=== PATIENT | female | born 1955 | race Caucasian/White ===

== ENCOUNTER 2022-11-09 19:02 | Inpatient (IN) ==
[2022-11-09] MEDS ORDERED: fentaNYL 100 mcg/2 ml 50 MCG/ML VIAL IV SLOW PU ONE ×2 (19:08→20:17)
[2022-11-09] MEDS ORDERED: Ondansetron 4 mg VIAL 2 MG/ML 2 ml VIAL IV ONE (19:08)
[2022-11-09] MEDS ORDERED: Morphine 4 MG/ML VIAL (1 ml) IV ONE (19:39)
[2022-11-09] MEDS ORDERED: HYDROmorphone 1 MG/1 ML SYRINGE IV ONE (22:16)
[2022-11-09 22:26] LABS: ABS Basophils 0.1 10^3/uL (0.0-0.1); ABS Eosinophils 0.1 10^3/uL (0.0-0.5); ABS Lymphocytes 0.6 10^3/uL (1.0-4.8); ABS Monocytes 1.4 10^3/uL (0.0-0.9); ABS Neutrophils 14.3 10^3/uL (1.5-7.6); ABS Nucleated RBC 0.01 10^3/ul; Eosinophil % 0.5 %; Hematocrit 35.7 % (35-45); Hemoglobin 12.1 g/dL (11.5-14.3); Lymphocyte % 3.7 %; Mean Corpuscular Hemoglobin 33.9 pg (27-33); Mean Corpuscular Volume 99.9 fL (80-97); Platelet Count 334 10^3/uL (150-450); Red Blood Count 3.57 10^6/uL (3.63-4.92); Red Cell Distribution Width 12.9 % (12-17); White Blood Count 16.4 10^3/uL (3.8-11.8)
[2022-11-09] MEDS ORDERED: Lactated Ringers 1000 ml BAG 1,000 ML IV SCH (23:00)
[2022-11-09] MEDS ORDERED: diazePAM INJ CARPUJECT 5 MG/ML SYRINGE IV ONE (23:02)
[2022-11-09 23:16] LABS: Albumin 3.1 g/dL (3.2-5.2); Albumin/Globulin Ratio 1.9 (1-3); Calcium 7.4 mg/dL (8.6-10.3); Creatinine, Serum 0.6 mg/dL (0.51-0.95); Globulin 1.6 g/dL (2-4); Potassium 3.9 mmol/L (3.5-5.0); Total Bilirubin 0.4 mg/dL (0.2-1.0); Total Protein 4.7 g/dL (6.4-8.9); eGFR CKD-EPI 98.9 (>60)
[2022-11-10] MEDS ORDERED: NS 0.9% 1000 ml BAG 1,000 ML IV SCH (00:30)
[2022-11-10] MEDS ORDERED: Ondansetron 4 mg VIAL 2 MG/ML 2 ml VIAL IV PRN ×2 (00:31→15:24)
[2022-11-10] MEDS ORDERED: HYDROmorphone 1 MG/1 ML SYRINGE IV SLOW PU PRN ×2 (00:32→01:46)
[2022-11-10] MEDS ORDERED: methylPREDNISolone SOD SUCC 40 mg/ml 1 ml VIAL IV SCH (01:00)
[2022-11-10 01:03] LABS: C Reactive Protein 3.36 mg/L (<8.01)
[2022-11-10] MEDS: Albuterol HFA INHALER 8 gm MDI INH PRN ×2 (01:18→07:26)
[2022-11-10] MEDS ORDERED: diazePAM INJ CARPUJECT 5 MG/ML SYRINGE IV ONE (01:45)
[2022-11-10] MEDS ORDERED: diazePAM INJ CARPUJECT 5 MG/ML SYRINGE IV PRN (01:45)
[2022-11-10] MEDS: Acetaminophen IV 1 GM/100ML 1,000 MG/100 ML BAG IV PRN ×3 (03:06→22:39)
[2022-11-10 06:33] LABS: ABS Lymphocytes 0.2 10^3/uL (1.0-4.8); ABS Monocytes 0.3 10^3/uL (0.0-0.9); ABS Neutrophils 9.8 10^3/uL (1.5-7.6); ABS Nucleated RBC 0.01 10^3/ul; Eosinophil % 0.1 %; Hematocrit 35.3 % (35-45); Hemoglobin 12.2 g/dL (11.5-14.3); Lymphocyte % 1.9 %; Mean Corpuscular Hemoglobin 34.2 pg (27-33); Mean Corpuscular Hgb Conc 34.5 g/dL (31-36); Mean Corpuscular Volume 99.2 fL (80-97); Mean Platelet Volume 6.1 fL (7.5-11.2); Nucleated Red Blood Cells % 0.1 /100 WBC (0.0-0.4); Platelet Count 313 10^3/uL (150-450); Red Blood Count 3.56 10^6/uL (3.63-4.92); Red Cell Distribution Width 12.9 % (12-17); White Blood Count 10.4 10^3/uL (3.8-11.8)
[2022-11-10 06:53] LABS: Calcium 9.2 mg/dL (8.6-10.3); Creatinine, Serum 0.83 mg/dL (0.51-0.95); Potassium 5.1 mmol/L (3.5-5.0); eGFR CKD-EPI 77.7 (>60)
[2022-11-10] MEDS: Mometasone/Formoter 200/5 MDI INH SCH ×2 (07:26→22:38)
[2022-11-10] MEDS ORDERED: NS 0.9% 500 ml BAG 500 ML IV ONE (08:36)
[2022-11-10] MEDS ORDERED: HYDROmorphone 0.5 MG/0.5 ML SYRINGE IV SLOW PU PRN (08:48)
[2022-11-10] MEDS ORDERED: Acetaminophen IV 1 GM/100ML 1,000 MG/100 ML BAG IV ONE (11:07)
[2022-11-10 12:18] LABS: Creatinine, Serum 0.71 mg/dL (0.51-0.95); Potassium 4.8 mmol/L (3.5-5.0); eGFR CKD-EPI 93.7 (>60)
[2022-11-10] MEDS ORDERED: Furosemide 20 mg/2 ml IV VIAL IV ONE (12:18)
[2022-11-10] MEDS: methylPREDNISolone SOD SUCC 40 mg/ml 1 ml VIAL IV SCH ×2 (12:42→22:38)
[2022-11-10 12:51] LABS: Urine Appearance Cloudy; Urine Bilirubin Negative (Negative); Urine Blood Negative (Negative); Urine Color Yellow; Urine Glucose Negative (Negative); Urine Ketones Negative (Negative); Urine Nitrite Negative (Negative); Urine Protein Negative (Negative); Urine Specific Gravity 1.027 (1.002-1.030); Urine Urobilinogen Negative (Negative)
[2022-11-10] MEDS ORDERED: Dexamethasone IV 4 MG/ML VIAL 1 ml VIAL ONE (13:34)
[2022-11-10] MEDS ORDERED: Ondansetron 4 mg VIAL 2 MG/ML 2 ml VIAL ONE (13:34)
[2022-11-10] MEDS ORDERED: Propofol 10 MG/ML 20 ML BTL ONE (13:34)
[2022-11-10] MEDS ORDERED: Phenylephrine IV 10 MG/ML 1 ml VIAL ONE (13:35)
[2022-11-10] MEDS ORDERED: Lidocaine 2% PF 5 ML VIAL ONE (13:35)
[2022-11-10] MEDS ORDERED: Sevoflurane BOTTLE ONE (13:35)
[2022-11-10] MEDS ORDERED: fentaNYL 100 mcg/2 ml 50 MCG/ML VIAL ONE (13:36)
[2022-11-10] MEDS ORDERED: Midazolam 2 mg/2 ml VIAL 1 mg/ml 2 ml VIAL (2 mg) ONE (13:36)
[2022-11-10] MEDS ORDERED: ceFAZolin 2 GM in NS PREMIX 2 GM/100 ML BAG IVPB ONE (13:47)
[2022-11-10] MEDS: Albuterol/Ipratropium NEB.SOL (2.5/0.5 MG) 3 ML NEB.SOLN INH PRN (15:17)
[2022-11-10] MEDS ORDERED: Albuterol/Ipratropium NEB.SOL (2.5/0.5 MG) 3 ML NEB.SOLN ONE (15:21)
[2022-11-10] MEDS ORDERED: fentaNYL 100 mcg/2 ml 50 MCG/ML VIAL IV PRN (15:24)
[2022-11-10] MEDS ORDERED: Acetaminophen IV 1 GM/100ML 1,000 MG/100 ML BAG IV PRN (15:24)
[2022-11-10] MEDS ORDERED: HYDROmorphone 1 MG/1 ML SYRINGE IV PRN (15:24)
[2022-11-10] MEDS ORDERED: Naloxone 0.4 mg VIAL 0.4 mg/ml 1 ml VIAL IV PRN (15:24)
[2022-11-10] MEDS ORDERED: Ketamine HCL 50 mg/ml 10 ml VIAL (500 MG) ONE (15:24)
[2022-11-10] MEDS ORDERED: Ropivacaine 5 MG/ML 20 ML VIAL 0.5% (100 MG) ONE (15:26)
[2022-11-10] MEDS ORDERED: Senna TAB 8.6 mg TAB PO PRN (15:33)
[2022-11-10] MEDS ORDERED: Magnesium Hydroxide LIQ 30 ML UDC PO PRN (15:33)
[2022-11-11] MEDS: Albuterol HFA INHALER 8 gm MDI INH PRN ×3 (03:57→19:39)
[2022-11-11] MEDS: methylPREDNISolone SOD SUCC 40 mg/ml 1 ml VIAL IV SCH ×3 (05:38→20:47)
[2022-11-11] MEDS: Acetaminophen IV 1 GM/100ML 1,000 MG/100 ML BAG IV PRN ×2 (05:39→23:45)
[2022-11-11 06:17] LABS: ABS Lymphocytes 0.3 10^3/uL (1.0-4.8); ABS Monocytes 0.8 10^3/uL (0.0-0.9); ABS Neutrophils 12.2 10^3/uL (1.5-7.6); Hematocrit 29.3 % (35-45); Hemoglobin 10.1 g/dL (11.5-14.3); Lymphocyte % 2.6 %; Mean Corpuscular Hemoglobin 34.2 pg (27-33); Mean Corpuscular Hgb Conc 34.4 g/dL (31-36); Mean Corpuscular Volume 99.4 fL (80-97); Mean Platelet Volume 6.5 fL (7.5-11.2); Platelet Count 270 10^3/uL (150-450); Red Blood Count 2.94 10^6/uL (3.63-4.92); Red Cell Distribution Width 12.8 % (12-17); White Blood Count 13.3 10^3/uL (3.8-11.8)
[2022-11-11] MEDS ORDERED: ceFAZolin 1 GM in Dextrose 1 GM/50 ML BAG IVPB SCH (06:30)
[2022-11-11 06:47] LABS: Calcium 8.8 mg/dL (8.6-10.3); Creatinine, Serum 0.68 mg/dL (0.51-0.95); Potassium 4.7 mmol/L (3.5-5.0)
[2022-11-11] MEDS: ceFAZolin 1 GM X 3 DOSES POST-OP Q8H (AddVan) IVPB SCH ×3 (06:52→23:00)
[2022-11-11] MEDS ORDERED: Morphine 2 MG/ML SYRINGE IV PRN (06:54)
[2022-11-11] MEDS: Mometasone/Formoter 200/5 MDI INH SCH ×2 (09:49→19:33)
[2022-11-11] MEDS: Enoxaparin 40 MG/0.4 ML SYR SUBCUT SCH (09:53)
[2022-11-11] MEDS ORDERED: Furosemide 20 mg/2 ml IV VIAL IV ONE (11:59)
[2022-11-12] MEDS: methylPREDNISolone SOD SUCC 40 mg/ml 1 ml VIAL IV SCH (05:06)
[2022-11-12] MEDS: Albuterol HFA INHALER 8 gm MDI INH PRN ×3 (07:58→19:42)
[2022-11-12] MEDS: Mometasone/Formoter 200/5 MDI INH SCH ×2 (07:59→19:41)
[2022-11-12] MEDS: Enoxaparin 40 MG/0.4 ML SYR SUBCUT SCH (09:52)
[2022-11-12] MEDS: Polyethylene Glycol 3350 17 GM PACKET PO PRN (19:22)
[2022-11-13] MEDS: Albuterol HFA INHALER 8 gm MDI INH PRN ×3 (00:19→22:52)
[2022-11-13 06:47] LABS: Hematocrit 25.2 % (35-45); Hemoglobin 8.8 g/dL (11.5-14.3); Mean Corpuscular Hemoglobin 34.1 pg (27-33); Mean Corpuscular Hgb Conc 34.9 g/dL (31-36); Mean Corpuscular Volume 97.8 fL (80-97); Mean Platelet Volume 6.3 fL (7.5-11.2); Platelet Count 301 10^3/uL (150-450); Red Blood Count 2.58 10^6/uL (3.63-4.92); Red Cell Distribution Width 12.8 % (12-17); White Blood Count 9.4 10^3/uL (3.8-11.8)
[2022-11-13 07:04] LABS: Calcium 8.7 mg/dL (8.6-10.3); Creatinine, Serum 0.67 mg/dL (0.51-0.95); Magnesium 1.9 mg/dL (1.9-2.7); Phosphorus 2.8 mg/dL (2.5-5.0); eGFR CKD-EPI 96.3 (>60)
[2022-11-13] MEDS: Mometasone/Formoter 200/5 MDI INH SCH ×3 (08:10→19:40)
[2022-11-13] MEDS: Albuterol/Ipratropium NEB.SOL (2.5/0.5 MG) 3 ML NEB.SOLN INH PRN (11:09)
[2022-11-13] MEDS: Enoxaparin 40 MG/0.4 ML SYR SUBCUT SCH (11:11)
[2022-11-13 13:49] LABS: Hematocrit 28.4 % (35-45); Hemoglobin 9.6 g/dL (11.5-14.3)
[2022-11-13] MEDS: Albuterol/Ipratropium NEB.SOL (2.5/0.5 MG) 3 ML NEB.SOLN INH SCH ×2 (14:38→19:37)
[2022-11-13 14:57] LABS: TSH Ultra Thyroid Stim Horm 0.55 mcIU/mL (0.34-5.60)
[2022-11-13 15:02] LABS: Ferritin 104.2 ng/mL (11-307)
[2022-11-13] MEDS: Polyethylene Glycol 3350 17 GM PACKET PO PRN (15:36)
[2022-11-13] MEDS: Azithromycin 500 mg/250 ml NS 500 MG/250 ML BAG IVPB SCH (15:41)
[2022-11-14] MEDS: Albuterol/Ipratropium NEB.SOL (2.5/0.5 MG) 3 ML NEB.SOLN INH SCH ×3 (01:29→13:07)
[2022-11-14 06:12] LABS: ABS Monocytes 1.1 10^3/uL (0.0-0.9); ABS Neutrophils 6.8 10^3/uL (1.5-7.6); Eosinophil % 0.4 %; Hematocrit 25.1 % (35-45); Hemoglobin 8.8 g/dL (11.5-14.3); Lymphocyte % 10.6 %; Mean Corpuscular Hemoglobin 34.6 pg (27-33); Mean Corpuscular Hgb Conc 34.9 g/dL (31-36); Mean Corpuscular Volume 99.1 fL (80-97); Mean Platelet Volume 6.3 fL (7.5-11.2); Platelet Count 319 10^3/uL (150-450); Red Blood Count 2.54 10^6/uL (3.63-4.92); Red Cell Distribution Width 12.6 % (12-17)
[2022-11-14 06:32] LABS: Calcium 8.3 mg/dL (8.6-10.3); Creatinine, Serum 0.65 mg/dL (0.51-0.95); Potassium 4.6 mmol/L (3.5-5.0)
[2022-11-14] MEDS: Mometasone/Formoter 200/5 MDI INH SCH ×3 (06:49→19:57)
[2022-11-14] MEDS: Enoxaparin 40 MG/0.4 ML SYR SUBCUT SCH (08:40)
[2022-11-14] MEDS: Azithromycin 500 mg/250 ml NS 500 MG/250 ML BAG IVPB SCH (13:26)
[2022-11-14] MEDS: Albuterol HFA INHALER 8 gm MDI INH PRN ×2 (19:57→23:50)
[2022-11-15] MEDS: Albuterol HFA INHALER 8 gm MDI INH PRN ×5 (06:11→23:01)
[2022-11-15 06:15] LABS: ABS Eosinophils 0.2 10^3/uL (0.0-0.5); ABS Lymphocytes 1.5 10^3/uL (1.0-4.8); ABS Monocytes 1.4 10^3/uL (0.0-0.9); ABS Neutrophils 6.8 10^3/uL (1.5-7.6); Eosinophil % 1.8 %; Hematocrit 25.7 % (35-45); Hemoglobin 8.9 g/dL (11.5-14.3); Lymphocyte % 15.4 %; Mean Corpuscular Hemoglobin 34.3 pg (27-33); Mean Corpuscular Hgb Conc 34.5 g/dL (31-36); Mean Corpuscular Volume 99.5 fL (80-97); Platelet Count 351 10^3/uL (150-450); Red Blood Count 2.58 10^6/uL (3.63-4.92); Red Cell Distribution Width 12.7 % (12-17); White Blood Count 9.9 10^3/uL (3.8-11.8)
[2022-11-15 06:35] LABS: Calcium 8.6 mg/dL (8.6-10.3); Creatinine, Serum 0.58 mg/dL (0.51-0.95); Potassium 4.4 mmol/L (3.5-5.0); eGFR CKD-EPI 99.7 (>60)
[2022-11-15] MEDS: Mometasone/Formoter 200/5 MDI INH SCH ×2 (07:35→19:46)
[2022-11-15] MEDS: Enoxaparin 40 MG/0.4 ML SYR SUBCUT SCH (08:16)
[2022-11-15] MEDS: Azithromycin 500 mg/250 ml NS 500 MG/250 ML BAG IVPB SCH (13:29)
[2022-11-15] MEDS: SPIRIVA Respimat (tiotropium) 2.5 mcg/inh Inhaler INH SCH (19:46)
[2022-11-16] MEDS: Albuterol HFA INHALER 8 gm MDI INH PRN ×6 (00:35→23:08)
[2022-11-16] MEDS: SPIRIVA Respimat (tiotropium) 2.5 mcg/inh Inhaler INH SCH (08:03)
[2022-11-16] MEDS: Enoxaparin 40 MG/0.4 ML SYR SUBCUT SCH (08:04)
[2022-11-16] MEDS: Mometasone/Formoter 200/5 MDI INH SCH ×2 (08:04→19:37)
[2022-11-16] MEDS: Azithromycin 500 mg/250 ml NS 500 MG/250 ML BAG IVPB SCH (13:29)
[2022-11-17] MEDS: Mometasone/Formoter 200/5 MDI INH SCH ×2 (07:41→19:34)
[2022-11-17] MEDS: Enoxaparin 40 MG/0.4 ML SYR SUBCUT SCH (08:07)
[2022-11-17] MEDS: SPIRIVA Respimat (tiotropium) 2.5 mcg/inh Inhaler INH SCH (08:07)
[2022-11-17] MEDS: Albuterol HFA INHALER 8 gm MDI INH PRN ×5 (09:53→22:29)
[2022-11-18] MEDS: Albuterol HFA INHALER 8 gm MDI INH PRN ×4 (05:50→19:09)
[2022-11-18] MEDS: SPIRIVA Respimat (tiotropium) 2.5 mcg/inh Inhaler INH SCH (07:14)
[2022-11-18] MEDS: Mometasone/Formoter 200/5 MDI INH SCH ×2 (07:15→19:09)
[2022-11-18] MEDS: Enoxaparin 40 MG/0.4 ML SYR SUBCUT SCH (08:23)
[2022-11-18] MEDS: Latanoprost 0.005% 2.5 ml BTL BOTH EYES SCH (21:57)
[2022-11-19] MEDS: Albuterol HFA INHALER 8 gm MDI INH PRN ×4 (06:21→22:30)
[2022-11-19] MEDS: SPIRIVA Respimat (tiotropium) 2.5 mcg/inh Inhaler INH SCH (08:01)
[2022-11-19] MEDS: Mometasone/Formoter 200/5 MDI INH SCH ×2 (08:01→19:25)
[2022-11-19] MEDS: Enoxaparin 40 MG/0.4 ML SYR SUBCUT SCH (08:11)
[2022-11-19] MEDS: Latanoprost 0.005% 2.5 ml BTL BOTH EYES SCH (22:34)
[2022-11-20] MEDS: SPIRIVA Respimat (tiotropium) 2.5 mcg/inh Inhaler INH SCH (07:30)
[2022-11-20] MEDS: Mometasone/Formoter 200/5 MDI INH SCH ×2 (07:31→19:27)
[2022-11-20] MEDS: Enoxaparin 40 MG/0.4 ML SYR SUBCUT SCH (09:26)
[2022-11-20] MEDS: Albuterol HFA INHALER 8 gm MDI INH PRN ×7 (09:32→23:28)
[2022-11-20] MEDS: Latanoprost 0.005% 2.5 ml BTL BOTH EYES SCH (21:23)
[2022-11-21] MEDS: Albuterol HFA INHALER 8 gm MDI INH PRN ×6 (06:35→22:29)
[2022-11-21] MEDS: Mometasone/Formoter 200/5 MDI INH SCH ×2 (06:55→19:24)
[2022-11-21] MEDS: SPIRIVA Respimat (tiotropium) 2.5 mcg/inh Inhaler INH SCH ×2 (06:56→07:01)
[2022-11-21] MEDS: Enoxaparin 40 MG/0.4 ML SYR SUBCUT SCH (11:27)
[2022-11-21 11:32] LABS: Calcium 8.7 mg/dL (8.6-10.3); Creatinine, Serum 0.58 mg/dL (0.51-0.95); Potassium 4.2 mmol/L (3.5-5.0); eGFR CKD-EPI 99.7 (>60)
[2022-11-21] MEDS ORDERED: Iohexol 350 (CONTRAST) 500 ML MDV IV ONE (12:11)
[2022-11-21] MEDS: Latanoprost 0.005% 2.5 ml BTL BOTH EYES SCH (22:35)
[2022-11-22] MEDS: Albuterol HFA INHALER 8 gm MDI INH PRN ×2 (06:03→11:32)
[2022-11-22] MEDS: SPIRIVA Respimat (tiotropium) 2.5 mcg/inh Inhaler INH SCH (07:22)
[2022-11-22] MEDS: Mometasone/Formoter 200/5 MDI INH SCH (07:23)
[2022-11-22] MEDS: Enoxaparin 40 MG/0.4 ML SYR SUBCUT SCH (08:07)
[2022-11-22 10:56] VITALS: BP 121/71
== END 2022-11-22 12:00 | DRG 308 ==
LOC: ED 19:02 → SUATTDRO 22:20 → EDHOLD 22:20 → SSU 11-10 02:57
PROVIDERS: ADMIT Internal Medicine; ATTEND Internal Medicine